=== PATIENT | female | born 1965 | race Caucasian/White ===

== ENCOUNTER → 2024-03-07 | Outpatient (CLI) | payer BC, SELFPAY ==
--- NOTE | 2024-03-07 13:30 | XR_ITS ---
Examination: Screening digital mammography, bilateral Computer aided detection 3-D breast Tomosynthesis, bilateral Date and time of exam: March 07, 2024 1329 hours Compared to mammograms dating to January 06, 2020 Indication: Screening Technique: Nonmagnified MLO, CC views of the breasts to been obtained, reconstructed from 3-D Tomosynthesis images. R2 computer aided detection program utilized for evaluation of suspicious masses and/or abnormal calcifications. 3-D Tomosynthesis images obtained. Findings: Scattered areas of fibroglandular density Benign calcifications 8 mm focal asymmetry indistinct margins retroareolar region left breast Impression: BI-RADS Category 0: Incomplete: Need additional imaging evaluation 8 mm focal asymmetry retroareolar region left breast, recommend follow-up spot tomographic views of this asymmetry as well as left breast sonography to complete the workup
== END | disposition home or self-care (01) ==
LOC: CDIM 13:05
PROVIDERS: PCP Internal Medicine; Referring Provider Internal Medicine; Visit Provider Internal Medicine
DX: Z12.31 Encounter for screening mammogram for malignant neoplasm of breast (principal); R92.8 Other abnormal and inconclusive findings on diagnostic imaging of breast; N64.89 Other specified disorders of breast
CPT/HCPCS: 77063; 77067

== ENCOUNTER → 2024-04-12 | Outpatient (CLI) | payer BC, SELFPAY ==
--- NOTE | 2024-04-12 15:00 | XR_ITS ---
Examination: Breast ultrasound, unilateral, left complete Date and time of exam: April 12, 2024 1442 hrs. Indications: Mammogram December 07, 2023 8 mm focal asymmetry retroareolar region left breast Technique: Real-time burk scale ultrasonographic imaging performed left breast including all 4 quadrants as well as nipple retroareolar and axillary region. Findings: No cystic or solid mass Dilated ducts in the retroareolar region left breast Impression: BI-RADS Category 2: Benign findings
--- NOTE | 2024-04-12 15:30 | XR_ITS ---
Examination: Diagnostic digital mammography, unilateral, left Computer aided detection 3-D breast Tomosynthesis, unilateral Date and time of exam: April 12, 2024 1502 hrs. Indications: Mammogram 10/06/2023 8 mm focal asymmetry retroareolar region left breast Technique: Nonmagnified MLO, CC views of the left breast have been obtained, reconstructed from 3-D Tomosynthesis images. R2 computer aided detection program utilized for evaluation of suspicious masses and/or abnormal calcifications. 3-D Tomosynthesis images obtained. Findings: Scattered areas of fibroglandular density Spot compression films confirm 6 mm focal asymmetry retroareolar region left breast, likely corresponding to dilated ducts on the left breast sonogram today in the retroareolar region left breast Impression: BI-RADS category 3: Probably benign findings One additional 6 month left mammogram follow-up is needed to document stability of focal asymmetry described above
== END | disposition home or self-care (01) ==
LOC: CDIM 14:41
PROVIDERS: PCP Internal Medicine; Referring Provider Internal Medicine; Visit Provider Internal Medicine
DX: R92.332 Mammographic heterogeneous density, left breast (principal); N64.89 Other specified disorders of breast
CPT/HCPCS: 76641; 77061; 77065; G0279

== ENCOUNTER → 2024-06-28 | Outpatient (CLI) | payer BC, SELFPAY ==
[2024-06-28 11:03] LABS: Collection Type, Urine Clean Catch
[2024-06-28 11:26] LABS: Basophils % (Auto) 1 % (0-2.5); Eosinophils # (Auto) 0.1 Thou/mm3 (0.0-0.5); Eosinophils % (Auto) 2 % (0-10); Hematocrit 38.9 % (36.0-46.0); Hemoglobin 13.4 g/dL (12.0-16.0); Immature Granulocytes % (Auto) 0 % (0-0); Immature Granulocytes Auto 0.01 Thou/mm3 (0.00-0.00); Lymphocytes # (Auto) 1.3 Thou/mm3 (1.0-4.8); Lymphocytes % (Auto) 26 % (10-50); Mean Corpuscular HGB Conc 34.4 g/dl (31.0-37.0); Mean Corpuscular Hemoglobin 30.5 pg (25.0-35.0); Mean Corpuscular Volume 89 fL (80-100); Monocytes # (Auto) 0.4 Thou/mm3 (0.0-0.8); Monocytes % (Auto) 8 % (0-12); Neutrophils # (Auto) 3.3 Thou/mm3 (1.8-7.7); Neutrophils % (Auto) 63 % (37-80); Nucleated Red Blood Cell % 0 /100 WBC (0); Platelet Count 292 Thou/mm3 (140-440); Red Blood Count 4.39 Miln/mm3 (4.00-5.20); White Blood Count 5.2 Thou/mm3 (3.6-11.0)
[2024-06-28 11:29] LABS: Bacteria,Urine Rare; Bilirubin,Urine Negative (Negative); Blood,Urine Negative (Negative); Clarity,Urine Clear (Clear/Hazy); Color,Urine Yellow (Lt Yel-Yel); Glucose, Urine Negative (Negative); Ketones,Urine Negative (Negative); Leukocyte Esterase,Urine Negative (Negative); Nitrite,Urine Negative (Negative); PH,Urine 5.5 (5.0-7.0); Protein,Urine Trace (Neg - Trace); RBC,Urine 4 /hpf (0-3); Specific Gravity,Urine 1.028 (1.001-1.035); Squamous Epithelial Cell,Urine 3 /hpf (0-5); Urobilinogen,Urine Negative mg/dL (0.0-1.0); WBC,Urine 3 /hpf (0-5)
[2024-06-28 11:37] LABS: Glucose Estimated Average 100 mg/dL (80-131); Hemoglobin A1C 5.1 % Hgb (4.8-6.0)
[2024-06-28 11:54] LABS: Alanine Aminotransferase 23 U/L (10-49); Albumin/Globulin Ratio 1.4 (1.2-2.2); Alkaline Phosphatase 79 U/L (46-116); Anion Gap 8 (7-16); Aspartate Amino Transferase 33 U/L (0-34); BUN/Creatinine Ratio 18 Ratio (12-20); Bilirubin,Total 0.7 mg/dL (0.3-1.2); Blood Urea Nitrogen 16 mg/dL (9-23); Calcium 9.7 mg/dL (8.3-10.6); Calcium (Corrected) 9.7 mg/dL (8.5-10.1); Carbon Dioxide 28.4 mMol/L (20.0-31.0); Chloride 103 mMol/L (98-107); Creatinine (Component) 0.9 mg/dL (0.6-1.3); Globulin 2.8 gm/dL (2.3-3.5); Glucose 87 mg/dL (74-106); Osmolality,Calculated 277 (275-295); Potassium 4.3 mMol/L (3.4-5.1); Sodium 139 mMol/L (136-145); Thyroid Stimulating Hormone 1.52 uIU/mL (0.55-4.78); Total Protein 6.8 gm/dL (5.7-8.2); eGFR > 60 See Note
[2024-06-28 12:13] LABS: Cardiac Risk Estimate 2.8 RATIO (3.7-5.6); Cholesterol 165 mg/dL (132-200); HDL Cholesterol 58 mg/dL (40-60); LDL Cholesterol,Calculated 96 mg/dL (0-130); Triglycerides 53 mg/dL (30-150); Uric Acid 4.8 mg/dL (3.1-7.8)
[2024-06-28 14:05] LABS: AFP Non-Pregnant < 1.30 ng/mL (<8.10); Vitamin D 25 Hydroxy Total 44.1 ng/mL (7.3-40.2)
[2024-06-28 15:56] LABS: Vitamin B12 980 pg/mL (211-911)
[2024-06-30 17:50] LABS: HCV RNA, PCR <15 NOT DETECTED IU/mL
[2024-07-01 07:15] LABS: HCV RNA, PCR Log IU <1.18 NOT DETECTED Log IU/mL
== END | disposition home or self-care (01) ==
LOC: COPL 10:08
PROVIDERS: PCP Internal Medicine; Referring Provider Specialist; Visit Provider Specialist
DX: Z00.00 Encounter for general adult medical examination without abnormal findings (principal); B17.10 Acute hepatitis C without hepatic coma; I10 Essential (primary) hypertension
CPT/HCPCS: 36415; 80053; 80061; 81001; 82105; 82306; 82607; 83036; 84443; 84550; 85025; 87522

== ENCOUNTER → 2024-07-02 | Outpatient (CLI) | payer BC, SELFPAY ==
--- NOTE | 2024-07-02 10:45 | XR_ITS ---
Examination: Abdomen sonogram, complete Date and time of exam: July 02, 2024 1050 hrs. Indications: Diagnosis acute hepatitis the common diagnosis chronic hepatitis C 18 months ago. Technique: Multiple real-time grayscale transabdominal sonographic images of the abdomen have been obtained. Findings: Normal gallbladder. Normal common bile duct 0.3 cm Pancreatic head 1.5 cm Aorta not enlarged. Liver 14.4 cm fatty infiltration Normal hepatopedal portal venous oh Patent IVC Right kidney 8.6 cm cortex 1.5 cm Left kidney 8.4 cm cortex 1.3 cm Moderate bilateral renal parenchymal scar formation Spleen 9.0 cm Impression: Normal gallbladder Fatty liver Moderate bilateral renal parenchymal scar formation
== END | disposition home or self-care (01) ==
PROVIDERS: PCP Internal Medicine; Referring Provider Specialist; Visit Provider Specialist
DX: N28.89 Other specified disorders of kidney and ureter (principal); K76.0 Fatty (change of) liver, not elsewhere classified
CPT/HCPCS: 76700

== ENCOUNTER 2024-08-14 11:22 | Emergency (ER) | payer BC, SELFPAY ==
--- NOTE | 2024-08-14 11:34 | EKG_ITS ---
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
--- NOTE | 2024-08-14 11:34 | XR_ITS ---
Examination: AP chest single view TECHNIQUE: AP portable semiupright chest single view Date and time: August 14, 2024 1203 hours Comparison March 01, 2018 INDICATIONS: Chest pain today FINDINGS: Normal heart size. Lungs are clear. Osseous structures are intact IMPRESSION: No active disease
[2024-08-14 11:38] VITALS: BP 122/78; PULSE 60; PULSE 69; RESP 15; RESP 20; TEMP 36.7; O2SAT 100
--- NOTE | 2024-08-14 11:38 | PC.NURSE ---
Patient to er via ems, patient was at work c/o weakness, tingling and numbness to fingers, toes and head that started at 0900, no deficits,Dr. 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
--- NOTE | 2024-08-14 11:38 | PD.EDADULT ---
ED General RME/HPI General Chief complaint: Weakness Stated complaint: WEAKNESS Time Seen by Provider: 08/14/24 11:32 Arrival date/time: 08/14/24 11:22 RME / HPI RME / HPI narrative: DR. STATON MAIN ED EVALUATION: 59 year old female with past medical history significant for hypertension presents to the Emergency Department [facility] with complaints of generalized weakness that started at 9 AM and numbness to the diffuse face, bilateral hands, and bilateral feet and that started 1030 AM. Last well known time was 9 AM. Other associated symptoms include nausea. Patient states she can walk. She does mention that she has been anxious and got tearful; she states both her mother and have cancer. Related Data Home Medications ?Medication ?Instructions ?Recorded ?Confirmed metoprolol tartrate 50 mg tablet 50 mg PO QDAY #0 tabs 12/10/16 01/13/20 atorvastatin 10 mg tablet 10 mg PO QDAY 01/13/20 01/13/20 cyclobenzaprine 10 mg tablet 10 mg PO QDAY 01/13/20 01/13/20 Previous Rx's ?Medication ?Instructions ?Recorded ferrous sulfate 325 mg (65 mg 1 tab PO BID #120 tabs 04/07/17 iron) tablet dicyclomine 20 mg tablet 20 mg PO TID PRN abdominal pain 07/05/23 #20 tabs Allergies Allergy/AdvReac Type Severity Reaction Status Date / Time ibuprofen Allergy Verified 07/05/23 15:21 Latex, Natural Rubber Allergy Rash Verified 07/05/23 15:21 naproxen Allergy risk for Verified 07/05/23 15:21 GI bleed-gatsric bypass Review of Systems Review of Systems Systems Reviewed: All systems reviewed, normal except as documented Narrative Review of Systems: Constitutional: DENIES: fevers; Eyes: DENIES: loss of vision; Head/Ear/Nose: DENIES: loss of hearing. Throat: DENIES: dysphagia. Cardiovascular: DENIES: chest pain, dyspnea, or syncope. Respiratory: DENIES: shortness of breath; Gastrointestinal: POSITIVES: nausea DENIES: rectal bleeding or melena. Genitourinary: DENIES: dysuria (painful or difficult urination); Musculoskeletal: DENIES: arthralgia (pain in a joint); Skin: DENIES: rash; Neurological: POSITIVES: generalized weakness that started at 9 AM and numbness to the diffuse face, bilateral hands, and bilateral feet and that started 1030 AM; DENIES: loss of function or movement; Psychiatric: POSITIVES: anxiety, recent major life stressor, emotional problem (see HPI) NEGATIVES: illicit drug use or abuse; Endocrinology: DENIES: weight change,; Hematologic/Lymphatic: DENIES: abnormal bruising. Allergic/Immunologic: DENIES: urticaria (hives). Past Medical History Past Medical History CARDIAC: Positive Cardiac Disorders, Hypercholesterolemia and Hypertension GASTROINTESTINAL: Positive Gastrointestinal Disorders and Obesity HEMATOLOGIC: Positive Anemia Surgical History SURGICAL: Positive Tonsillectomy, Abdominal Surgery (COLONOSCOPY), Gastric Bypass Surgery, Hysterectomy and Tubal Ligation Social History SMOKING STATUS: Never smoker SUBSTANCE USE: does not use ALCOHOL: Never ED Exam Narrative Physical exam: Physical Exam: General: The vital signs were reviewed. The patient is non-toxic, in no apparent distress and appears healthy with a patent airway, no respiratory distress and has no apparent circulatory problems. Head & Scalp: Normocephalic, atraumatic. Face: Appears normal and is without lesions, deformity. Ears: Left external pinna appears normal. Right external pinna appears normal. Eyes: The sclera is anicteric. No obvious photophobia. The Left and Right Orbit/Lid/Conjunctiva appears normal without swelling, discoloration or injection. Nose: The nose is without deformity, discharge or tenderness; Throat: Appears normal. The mucous membranes are pink and moist without exudates, redness or mass seen. The tongue appears normal. Neck: The neck is supple and no apparent mass or adenopathy. Chest: The chest wall is normal in size and symmetry and has no chest wall tenderness or crepitus. The patient displays normal ventilator effort without retractions, accessory muscle use and has adequate air movement bilaterally with no wheezes and no rales. Cardiovascular: Regular rate and rhythm; No murmurs, rubs, or gallops; Gastrointestinal: The abdomen appears normal. No obvious hernias or mass. The abdomen is soft and benign, non-distended, with no pain, no guarding and no rebound tenderness. Bowel sounds are present and normal sounding. No CVA tenderness. Genitourinary: Back/Spine: Extremities/Musculoskeletal/lymphatic: The bilateral upper and lower extremities are warm. There is no evidence of arterial insufficiency. There is no evidence of venous insufficiency/edema. The patient spontaneously moves bilateral upper and lower extremities with no pain and no limitation of movement. There is no apparent, injury or trauma. Skin: The skin is warm, dry and intact. No rashes. No petechia. No purpura. No abnormal bruising. The color is appropriate with no cyanosis. Mental status/Psychiatric: Mental status is a appears anxious but patient denies feeling anxious. The patient has no apparent delusions, visual hallucinations, no apparent audible hallucinations. The patient has no apparent suicidal thoughts/ideation and no apparent homicidal thoughts/ideation. Neurological: The patient is awake, alert, interactive, cordial, cooperative and is oriented to name and situation. The patient follows commands and answers historical question with no impairment. There is no visual disturbance apparent. The pupils are equal and reactive bilaterally with normal eye movements and no diplopia The bilateral upper and lower extremities have normal strength, normal range of motion and normal functioning. The gait, station and balance appear to be baseline with no acute change patient literally gets on and off the ambulance gurney has no pronator drift has no ataxia no dysmetria ambulates on her regular feet turns her out walks on her toes and heels any difficulty. There is no apparent neurological deficit. Course Quality Measures none Orders Category Date Time Status CT Screening NOW Care 08/14/24 11:59 Completed [employer] Room Attendant Q4H START 00 Care 08/14/24 11:52 Completed EKG (ED ONLY) *Do not use* NOW Care 08/14/24 11:34 Completed NIH Stroke Scale NOW Care 08/14/24 11:[address] angio carotid w head w Stat Exams 08/14/24 11:[address] head/brain wo con Stat Exams 08/14/24 11:57 Completed EKG (ED Only) Stat Exams 08/14/24 11:34 Draft XR chest 1V portable Stat Exams 08/14/24 11:34 Completed Blood Culture (Lab) Stat Lab 08/14/24 12:27 Received CBC Stat Lab 08/14/24 12:00 Completed Comprehensive Metabolic Panel Stat Lab 08/14/24 12:00 Completed Lactate (Lactic Acid) Stat Lab 08/14/24 12:00 Completed Troponin I Stat Lab 08/14/24 12:00 Completed Urinalysis Stat Lab 08/14/24 13:34 Completed Venous Blood Gas Stat Lab 08/14/24 12:00 Completed Sodium Chloride 0.9% 1000 ml [Ns] 1,000 ml Med 08/14/24 11:45 Discontinued IV 125 mls/hr Vital Signs Vital signs: Vital Signs Temperature 98.1 F 08/14/24 11:38 Pulse Rate 60 08/14/24 11:38 Respiratory Rate 15 08/14/24 11:38 Blood Pressure 122/78 08/14/24 11:38 Pulse Oximetry (%) 100 08/14/24 11:38 Oxygen Delivery Method Room Air 08/14/24 11:38 Discharge Plan Plan Patient Disposition: HOME (Self Care) Prescriptions/Referrals Prescriptions/Med Rec: No Action metoprolol tartrate 50 MG tablet 50 mg PO QDAY Qty: 0 ferrous sulfate 325 ( 65 )MG tablet 1 tab PO BID Qty: 120 0RF cyclobenzaprine 10 mg tablet 10 mg PO QDAY atorvastatin 10 mg tablet 10 mg PO QDAY dicyclomine 20 mg tablet 20 mg PO TID PRN (Reason: abdominal pain) Qty: 20 0RF Referrals: Susan Guadarrama MD [Primary Care Provider] - In 1 week Problem List Clinical Impression: Fatigue, Anxiety attack Patient/Caregiver Discharge Instructions Additional Instructions: Today we did a major workup we find no clinical or medical evidence for a stroke today. Your CT and CTA were both negative. Your CBC was within normal limits comprehensive metabolic panel was normal. Urinalysis was unremarkable. Your blood gas showed a mild respiratory alkalosis suggesting possible hyperventilation and/or anxiety. As we discussed if you are getting worse please return for reevaluation. Keep a diary. Make an appoint to see your doctor next 2 to 3 days for reevaluation Print Language: Latvian Stand Alone Forms: [employer] Award Info., Patient Portal Info Letter MDM Narrative [facility] hospital course: I, Ana Rowland, am scribing for and in the presence of Dr. Staton. Patient presents with most likely a panic or anxiety attack but had some vague neurological complaints or symptoms that had no objective findings on arrival I did a complete exam in the ambulance bay. Because of that a stroke alert was not called but because of some overlap potential I went ahead and did a major workup Laboratory studies came back entirely negative CTA of the brain came back negative CT of the head came back negative chest x-ray was negative. Urinalysis was unremarkable CHEM panel was unremarkable VBG. pH is 7.52 pCO2 32 consistent with a respiratory alkalosis and she had some evidence of mild to moderate hyperventilation on arrival white count is 4.7 hemoglobin is 13.4. Patient was observed for several hours she remained comfortable seem more calm and was reassured. She was ambulatory Clinical Information Provided by patient and EMS Medical Records Reviewed EMS Meds/Rx Considered, not Ordered None Labs/Rad/Tests considered, not Ordered None Chronic Illness/Social Conditions Add or document further as needed: Hypertension, hypercholesterolemia, gastric bypass surgery, hysterectomy, and a tubal ligation. EKG Interpretation EKG #1: Date/time of EK08/14/24 1237 pm EKG interpretation: Interpreted by me: sinus bradycardia, rate 52, no STEMI Lab Interpretation Labs: see narrative above Imaging Imaging interpretation: see narrative above Radiology reports / interpretation(s): Procedure(s): CT head/brain wo con Accession Number(s): [id number] cc: Suman Staton MD; Jj Gallego MD~ Examination: CT brain head without contrast. 2-D sagittal coronal reconstructions Date and time of exam:August 14, 2024 1211 hours INDICATIONS: Paresthesias numbness weakness involving the body this morning CTDI: vol (mGy):45 DLP: (mGycm):932 Technique: Multiple CT axial sections of the brain have been obtained, 5 mm slice thickness. Contrast has not been administered. 2-D sagittal, coronal reconstructions have been obtained Low dose protocols were performed. One or more of the following dose reduction techniques were used; automated exposure control, adjustment of the mA and/or KV according to patient size, use of iterative reconstruction technique. Findings: No significant ventricular enlargement. Intra-axial or extra-axial hemorrhage density is not seen. No mass effect or midline shift Basal cisterns are not remarkable. Fourth ventricle is midline. Cranial vault intact. Impression: Negative for acute hemorrhage, mass effect or midline shift Advise clinical correlation and follow-up accordingly Dictated By: Jj Gallego MD Procedure(s): XR chest 1V portable Accession Number(s): [id number] cc: Suman Staton MD; Jj Gallego MD~ Examination: AP chest single view TECHNIQUE: AP portable semiupright chest single view Date and time: August 14, 2024 1203 hours Comparison March 01, 2018 INDICATIONS: Chest pain today FINDINGS: Normal heart size. Lungs are clear. Osseous structures are intact IMPRESSION: No active disease Dictated By: Jj Gallego MD Procedure(s): CT angio carotid w head w Accession Number(s): [id number] cc: Suman Staton MD; Jj Gallego MD; Susan Guadarrama MD~ Examination: CTA carotids with intravenous contrast CTA brain, head with intravenous contrast. 2-D sagittal, coronal reconstructions. 3-D reconstructions. Exam date and time: August 14, 2024 1450 hours INDICATIONS: Paresthesias numbness weakness involving the body beginning this morning CTDI: vol (mGy) 11 DLP: (mGycm) 426 Technique: Multiple CTA axial brain, head carotid images post intravenous contrast injection 70 cc, Isovue-370. 2-D sagittal, coronal reconstructions. 3-D reconstructions, 3-D post processing including vascular maximum intensity projection images. Low dose protocols were performed. One or more of the following dose reduction techniques were used; automated exposure control, adjustment of the mA and/or KV according to patient size, use of iterative reconstruction technique. Findings: No significant common carotid carotid bifurcation or internal carotid artery stenoses Codominant vertebral arteries with no significant stenoses No cerebral large vessel occlusions or thrombus IMPRESSION: No significant neck arterial stenoses No cerebral large vessel arterial occlusions or thrombus Dictated By: Jj Gallego MD Medication Administration(s) Medication Administration History Discontinued Medications Sodium Chloride (Ns) 1,000 mls @ 125 mls/hr IV .Q8H ONE Stop: 08/14/24 19:44 Last Infusion: 08/14/24 15:45 Dose: 125 mls/hr Documented By: Admin: 08/14/24 13:43 Dose: 125 mls/hr Documented By: AMY Diagnosis Differential diagnosis: TIA, CVA, anxiety Most likely dx, and/or detailed dx discussion: Fatigue Anxiety attack This patient most likely is very anxious had a panic or anxiety attack was not really aware but her and her both states she is under various stress and was listening to her podcast when she had the attack or event. Nonetheless she will keep a diary return if getting worse Dispositon Disposition: Discharge Home
[2024-08-14 11:42] VITALS: BMI 28.1
--- NOTE | 2024-08-14 11:57 | XR_ITS ---
Examination: CT brain head without contrast. 2-D sagittal coronal reconstructions Date and time of exam:August 14, 2024 1211 hours INDICATIONS: Paresthesias numbness weakness involving the body this morning CTDI: vol (mGy):45 DLP: (mGycm):932 Technique: Multiple CT axial sections of the brain have been obtained, 5 mm slice thickness. Contrast has not been administered. 2-D sagittal, coronal reconstructions have been obtained Low dose protocols were performed. One or more of the following dose reduction techniques were used; automated exposure control, adjustment of the mA and/or KV according to patient size, use of iterative reconstruction technique. Findings: No significant ventricular enlargement. Intra-axial or extra-axial hemorrhage density is not seen. No mass effect or midline shift Basal cisterns are not remarkable. Fourth ventricle is midline. Cranial vault intact. Impression: Negative for acute hemorrhage, mass effect or midline shift Advise clinical correlation and follow-up accordingly
--- NOTE | 2024-08-14 11:57 | XR_ITS ---
Examination: CTA carotids with intravenous contrast CTA brain, head with intravenous contrast. 2-D sagittal, coronal reconstructions. 3-D reconstructions. Exam date and time: August 14, 2024 1450 hours INDICATIONS: Paresthesias numbness weakness involving the body beginning this morning CTDI: vol (mGy) 11 DLP: (mGycm) 426 Technique: Multiple CTA axial brain, head carotid images post intravenous contrast injection 70 cc, Isovue-370. 2-D sagittal, coronal reconstructions. 3-D reconstructions, 3-D post processing including vascular maximum intensity projection images. Low dose protocols were performed. One or more of the following dose reduction techniques were used; automated exposure control, adjustment of the mA and/or KV according to patient size, use of iterative reconstruction technique. Findings: No significant common carotid carotid bifurcation or internal carotid artery stenoses Codominant vertebral arteries with no significant stenoses No cerebral large vessel occlusions or thrombus IMPRESSION: No significant neck arterial stenoses No cerebral large vessel arterial occlusions or thrombus
--- NOTE | 2024-08-14 12:10 | PC.NURSE ---
Patient gone to ct.
[2024-08-14 12:22] LABS: Basophils % (Auto) 1 % (0-2.5); Eosinophils # (Auto) 0.1 Thou/mm3 (0.0-0.5); Eosinophils % (Auto) 1 % (0-10); Hemoglobin 13.4 g/dL (12.0-16.0); Immature Granulocytes % (Auto) 0 % (0-0); Immature Granulocytes Auto 0.01 Thou/mm3 (0.00-0.00); Lactate (Lactic Acid) 1.5 mMol/L (0.4-2.0); Lymphocytes % (Auto) 22 % (10-50); Mean Corpuscular HGB Conc 36.2 g/dl (31.0-37.0); Mean Corpuscular Hemoglobin 31.2 pg (25.0-35.0); Mean Corpuscular Volume 86 fL (80-100); Monocytes # (Auto) 0.5 Thou/mm3 (0.0-0.8); Monocytes % (Auto) 11 % (0-12); Neutrophils % (Auto) 65 % (37-80); Nucleated Red Blood Cell % 0 /100 WBC (0); Platelet Count 247 Thou/mm3 (140-440); RDW Standard Deviation 37.8 fL (36.4-46.3); White Blood Count 4.7 Thou/mm3 (3.6-11.0)
[2024-08-14 12:24] LABS: Base Excess, Venous 3 (-3-3); O2 Saturation, Venous 67 % (96-97); PCO2, Venous 32 mmHg (36-56); PO2, Venous 33 mmHg (15-58); pH, Venous 7.52 (7.33-7.66)
[2024-08-14 12:44] LABS: Alanine Aminotransferase 17 U/L (10-49); Albumin, Serum 4.2 gm/dL (3.5-5.0); Albumin/Globulin Ratio 1.4 (1.2-2.2); Alkaline Phosphatase 86 U/L (46-116); Anion Gap 11 (7-16); Aspartate Amino Transferase 27 U/L (0-34); BUN/Creatinine Ratio 14 Ratio (12-20); Bilirubin,Total 0.6 mg/dL (0.3-1.2); Blood Urea Nitrogen 14 mg/dL (9-23); Carbon Dioxide 25.4 mMol/L (20.0-31.0); Chloride 106 mMol/L (98-107); Estimated Creatinine Clearance 56.1 mL/min (>60); Globulin 2.9 gm/dL (2.3-3.5); Glucose 92 mg/dL (74-106); Osmolality,Calculated 283 (275-295); Potassium 3.5 mMol/L (3.4-5.1); Sodium 142 mMol/L (136-145); Total Protein 7.1 gm/dL (5.7-8.2); Troponin I < 0.002 ng/mL (0.0-0.045); eGFR > 60 See Note
[2024-08-14 13:40] LABS: Collection Type, Urine Clean Catch
[2024-08-14] MEDS: SODIUM CHLORIDE 0.9% 1000 ML 1,000 ML 125 ML IV (13:43)
[2024-08-14 13:46] LABS: Bilirubin,Urine Negative (Negative); Blood,Urine Negative (Negative); Clarity,Urine Clear (Clear/Hazy); Color,Urine Lt-Yellow (Lt Yel-Yel); Glucose, Urine Negative (Negative); Ketones,Urine Negative (Negative); Leukocyte Esterase,Urine Negative (Negative); Nitrite,Urine Negative (Negative); PH,Urine 7.5 (5.0-7.0); Protein,Urine Negative (Neg - Trace); RBC,Urine 1 /hpf (0-3); Specific Gravity,Urine 1.008 (1.001-1.035); Squamous Epithelial Cell,Urine 1 /hpf (0-5); Urobilinogen,Urine Negative mg/dL (0.0-1.0); WBC,Urine 2 /hpf (0-5)
[2024-08-14 13:48] VITALS: BP 132/86; PULSE 58; RESP 16; O2SAT 100
[2024-08-14 15:37] VITALS: BP 141/87; PULSE 65; RESP 16; TEMP 36.7; O2SAT 100
== END 2024-08-14 15:49 | disposition home or self-care (01) ==
PROVIDERS: Emergency Provider Emergency Medicine; PCP Internal Medicine
DX: F41.1 Generalized anxiety disorder (principal); R53.83 Other fatigue; I10 Essential (primary) hypertension
CPT/HCPCS: 36415; 70450; 70496; 70498; 71045; 80053; 81001; 82803; 83605; 84484; 85025; 87040; 93005; 96360; 96361; 99285; A4649; J7030; Q9967

== ENCOUNTER → 2024-10-11 | Outpatient (CLI) | payer BC, SELFPAY ==
--- NOTE | 2024-10-11 10:45 | XR_ITS ---
Examination: Diagnostic digital mammography, unilateral, left Computer aided detection 3-D breast Tomosynthesis, unilateral Date and time of exam: October 11, 2024 1052 hours INDICATIONS: Mammogram April 12, 2024 6 mm focal asymmetry retroareolar region left breast Technique: Nonmagnified MLO, CC views of the left breast have been obtained, reconstructed from 3-D Tomosynthesis images. R2 computer aided detection program utilized for evaluation of suspicious masses and/or abnormal calcifications. 3-D Tomosynthesis images obtained. Findings: Scattered areas of fibroglandular density 4 mm circumscribed nodule outer left breast anterior depth on the spot compression CC view, upper left breast on the spot compression MLO view Impression: BI-RADS category 0: Incomplete: Need additional imaging evaluation Left breast sonography follow-up is needed to assess 4 mm nodule upper outer left breast
== END | disposition home or self-care (01) ==
PROVIDERS: Referring Provider Internal Medicine; Visit Provider Internal Medicine
DX: N63.21 Unspecified lump in the left breast, upper outer quadrant (principal); R92.8 Other abnormal and inconclusive findings on diagnostic imaging of breast
CPT/HCPCS: 77061; 77065; G0279

== ENCOUNTER → 2024-10-28 | Outpatient (CLI) | payer BC, SELFPAY ==
--- NOTE | 2024-10-28 09:30 | XR_ITS ---
Examination: Breast ultrasound, unilateral, left Date and time of exam: October 28, 2024 0935 hours INDICATIONS: Mammogram October 11, 2024 4 mm circumscribed nodule outer left breast anterior depth left breast pain one month Technique: Real-time burk scale ultrasonographic imaging performed left breast including all 4 quadrants as well as nipple retroareolar and axillary region. Findings: 3:00 cyst 4 x 4 millimeter No solid nodules IMPRESSION: BI-RADS Category 2: Benign findings, including small benign cysts corresponding to the mammographic abnormality, no further workup is needed
== END | disposition home or self-care (01) ==
PROVIDERS: PCP Internal Medicine; Referring Provider Internal Medicine; Visit Provider Internal Medicine
DX: N60.02 Solitary cyst of left breast (principal)
CPT/HCPCS: 76641

== ENCOUNTER → 2024-11-27 | Outpatient (CLI) | payer BC, SELFPAY ==
[2024-11-28 10:59] LABS: BVAG Candida Negative (Negative); Bacterial Vaginosis Markers Negative (Negative); Candida glabrata Negative (Negative); Candida krusei PCR Negative (Negative); Trichomonas Negative (Negative)
== END | disposition home or self-care (01) ==
LOC: SLDO 14:46
PROVIDERS: Referring Provider Specialist; Visit Provider Specialist
DX: A59.01 Trichomonal vulvovaginitis (principal); B37.89 Other sites of candidiasis; N76.0 Acute vaginitis
CPT/HCPCS: 81514

== ENCOUNTER → 2024-12-12 | Outpatient (CLI) | payer BC, SELFPAY ==
[2024-12-12 09:44] LABS: Misc Send Out* See Sep Rpt
[2024-12-12 10:42] LABS: AFP Non-Pregnant 2.30 ng/mL (<8.10)
[2024-12-14 22:06] LABS: HCV RNA, PCR <15 NOT DETECTED IU/mL
[2024-12-16 09:19] LABS: HCV RNA, PCR Log IU <1.18 NOT DETECTED Log IU/mL
== END | disposition home or self-care (01) ==
PROVIDERS: PCP Internal Medicine; Referring Provider Specialist; Visit Provider Specialist
DX: B17.10 Acute hepatitis C without hepatic coma (principal); N85.02 Endometrial intraepithelial neoplasia [EIN]; Z80.3 Family history of malignant neoplasm of breast
CPT/HCPCS: 36415; 82105; 87522

== ENCOUNTER → 2025-01-01 | Outpatient (CLI) | payer BC, SELFPAY ==
--- NOTE | 2025-01-01 15:00 | XR_ITS ---
Examination: Abdomen sonogram, complete Date and time of exam: January 01, 2025, 1522 hours INDICATIONS: Diagnosis chronic hepatitis C 1 year ago. Technique: Multiple real-time grayscale transabdominal sonographic images of the abdomen have been obtained. Findings: Contracted gallbladder Gallbladder wall 0.3 cm Common bile duct 0.4 cm Pancreatic head 1.9 cm Aorta not enlarged. Liver 15.1 cm fatty infiltration no focal liver lesions. Normal hepatopetal portal venous flow Patent IVC Right kidney 8.4 cm renal cortex 1.0 cm Left kidney 9.3 cm renal cortex 1.4 cm Mild renal scarring Spleen 10.2 cm IMPRESSION: Recommend repeating the gallbladder portion of the study with fasting Normal common bile duct Liver normal size fatty infiltration no focal liver lesions Small kidneys with bilateral renal cortical thinning, no hydronephrosis
== END | disposition home or self-care (01) ==
LOC: CDIM 14:56
PROVIDERS: PCP Internal Medicine; Referring Provider Specialist; Visit Provider Specialist
DX: K76.0 Fatty (change of) liver, not elsewhere classified (principal); N28.89 Other specified disorders of kidney and ureter
CPT/HCPCS: 76700

== ENCOUNTER → 2025-03-06 | Outpatient (CLI) | payer BC, SELFPAY ==
[2025-03-06 13:59] LABS: Albumin, Serum 4.4 gm/dL (3.5-5.0); Anion Gap 10 (7-16); BUN/Creatinine Ratio 11 Ratio (12-20); Blood Urea Nitrogen 11 mg/dL (9-23); Calcium 9.5 mg/dL (8.3-10.6); Calcium (Corrected) 9.5 mg/dL (8.5-10.1); Carbon Dioxide 26.5 mMol/L (20.0-31.0); Chloride 104 mMol/L (98-107); Creatinine (Component) 1.0 mg/dL (0.6-1.3); Glucose 80 mg/dL (74-106); Osmolality,Calculated 277 (275-295); Phosphorous 3.8 mg/dL (2.4-5.1); Potassium 4.1 mMol/L (3.4-5.1); Sodium 140 mMol/L (136-145); eGFR > 60 See Note
== END | disposition home or self-care (01) ==
LOC: COPL 12:24
PROVIDERS: PCP Internal Medicine; Referring Provider Internal Medicine; Visit Provider Internal Medicine
DX: I10 Essential (primary) hypertension (principal)
CPT/HCPCS: 36415; 80069